=== PATIENT | female | born 1970 | race Caucasian/White ===

== ENCOUNTER 2017-07-08 15:25 | Emergency (ER) | payer OTHER ==
[~2017-07-08] VITALS: Ht 177.8 cm; Wt 95.3 kg
[~2017-07-08 15:25] MED LIST: ADDERALL 15 MG15 MG; ADDERALL 20 MG20 M1 PO; ANTIVERT25 MG PO; AZITHROMYCIN 2250 MG PO; CIPRO500 MG PO; CLARITIN10 MG PO; HYDROCODONE-AP1 EAC6 PO; HYZAAR 100-12.1 EACH; HYZAAR 100-251 EACH PO; K-DUR 20 MEQ T20 MEQ PO; KEFLEX500 MG PO; LAMICTAL XR100 MG; LEVAQUIN 250 M250 MG PO; LUTERA1 EACH; LUTERA1 EACH PO; MACROBID 100 M100 M1 PO; ONDANSETRON HCL4 M2 PO; PROTONIX40 M1 PO; PYRIDIUM200 MG PO; REGLAN 10 MG TA10 MG PO; SERTRALINE HCL50 MG; SERTRALINE HCL50 MG PO; SINGULAIR 10 MG10 M1; TRANSDERM-SCO1 PATCH TRANSDERM; VYVANSE60 MG; XANAX1 MG PO; ZOFRAN ODT4 MG PO
[2017-07-08] MEDS ORDERED: AZITHROMYCIN 2250 MG PO (15:38)
[2017-07-08] MEDS ORDERED: CLEOCIN HCL300 MG PO (16:02)
[2017-07-08] MEDS ORDERED: PREDNISONE 20 M20 M1 PO (16:06)
[2017-07-08 16:34] VITALS: BP 121/84
== END 2017-07-08 16:35 | disposition home or self-care (01) ==
LOC: M.ERS 15:25
DX: J03.00 Acute streptococcal tonsillitis, unspecified (principal); I10 Essential (primary) hypertension; E78.5 Hyperlipidemia, unspecified; F41.9 Anxiety disorder, unspecified; F32.9 Major depressive disorder, single episode, unspecified

== ENCOUNTER → 2017-09-22 | Outpatient (CLI) | payer OTHER ==
[~2017-09-22] MED LIST changes: +CLEOCIN HCL300 MG PO; +PREDNISONE 20 M20 M1 PO
== END ==
LOC: M.RAD 14:15
DX: Z12.31 Encounter for screening mammogram for malignant neoplasm of breast (principal)